=== PATIENT | male | born 1975 | race Caucasian/White ===

== ENCOUNTER 2022-09-17 16:12 | Observation (INO) | payer OTHER, SELFPAY ==
[2022-09-17] VITALS (24 sets, daily range): BP systolic 126–155; BP diastolic 69–106; PULSE 64–96; RESP 10–25; TEMP 36.6; O2SAT 94–99
--- NOTE | ~2022-09-17 | CT_ITS ---
EXAMINATION: CTA brain carotid DATE: 09/18/2022 08:45 INDICATION: Transient ischemic attack. TECHNIQUE: Computed tomographic angiography (CTA) of the head was performed without and with 100 mL O mnipaque-350 intravenous contrast. CTA of the neck was performed with intravenous contrast. Automated exposure control and iterative reconstruction technique were employed. The dose-length product was 1 787.66 mGy-cm. Maximum intensity projection and volume rendered 3D-reconstructions were created by paige hawk technologist on a separate workstation. COMPARISON: Head CT 09/17/2022, brain MRI 09/18/2022 FINDINGS: HEAD CTA: There is no intracranial hemorrhage, acute infarction, or abnormal intracranial mass lesion . The ventricles are normal in size. There is mild mucosal thickening in the paranasal sinuses. The o rbits are normal. There is a small left mastoid effusion. The left vertebral artery is dominant. Ther e is no significant stenosis of basilar artery or the posterior cerebral arteries. There is no signif icant stenosis of the intracranial internal carotid arteries or anterior or middle cerebral arteries. Anterior communicating artery is normal. The posterior communicating arteries are normal. There is a 2 mm infundibulum at left posterior communicating artery origin. There is no aneurysm. NECK CTA: There are no pathologically enlarged lymph nodes. There is mild plaque in proximal right in ternal carotid artery. There is 0% stenosis of the proximal right internal carotid artery relative to normal distal artery lumen diameter (NASCET criteria). There is 0% stenosis of the proximal left int ernal carotid artery relative to normal distal artery lumen diameter. There is mild cervical spondylo sis. IMPRESSION: 1. Normal brain. No aneurysm or significant intracranial arterial stenosis. 2. 0% stenosis of the proximal internal carotid arteries relative to normal distal artery lumen diame ters (NASCET criteria). Reviewed, dictated and finalized at location A. ANCILLARY IMPRESSION: 1. Normal brain. No aneurysm or significant intracranial arterial stenosis. 2. 0% stenosis of the proximal internal carotid arteries relative to normal dis sheila artery lumen diameters (NASCET criteria).
--- NOTE | ~2022-09-17 | MR_ITS ---
MRI of the brain Clinical History: TIA Technique: Axial and sagittal T1-weighted images were acquired. These were followed by axial T2-weigh edwige, diffusion weighted, gradient, and FLAIR images.. Following intravenous administration of 17 cc M ultiHance gadolinium, T1-weighted fat-sat imaging was performed in the axial and sagittal planes. Findings: No abnormal signal seen in the brain parenchyma. No acute infarct, intracranial hemorrhage, or mass lesion. Ventricles and subarachnoid spaces are unremarkable. Orbits are unremarkable. Paranasal sinuses and r ight mastoid air cells are clear. Minimal fluid present in left mastoid air cells. Major intracranial flow voids are intact. Sagittal midline structures are intact. No abnormal postcontrast enhancement identified. IMPRESSION: Minimal fluid in left mastoid air cells, otherwise unremarkable exam. Reviewed, dictated and finalized at location M. STARTER
--- NOTE | ~2022-09-17 | CT_ITS ---
EXAMINATION: CT brain wo con DATE: 09/17/2022 17:07 INDICATION: Vision loss. TECHNIQUE: Computed tomography (CT) of the head was performed without intravenous contrast. The mA wa s adjusted according to patient size. Iterative reconstruction technique was employed. The dose-lengt h product was 605.33 mGy-cm. COMPARISON: Brain MRI 03/04/2013 FINDINGS: There is no intracranial hemorrhage, acute infarction, or abnormal intracranial mass lesion . The ventricles are normal in size. There is mild mucosal thickening in the ethmoid sinuses. There i s a small left mastoid effusion. The orbits are normal. IMPRESSION: 1. Normal brain. Reviewed, dictated and finalized at location A. GER LOAN IMPRESSION: 1. Normal brain.
[2022-09-17 18:26] LABS: Basophils Percent Auto 0.3 % (0.2-1.2); Eosinophils Absolute Auto 0.1 K/mm3 (0-0.3); Eosinophils Percent Auto 1.2 % (0-4.4); Hematocrit 38.9 % (42.0-52.0); Hemoglobin 13.3 g/dL (14.0-18.0); Immature Granulocyte Absolute 0.04 K/mm3 (0.00-0.031); Immature Granulocyte Percent A 0.7 % (0-0.5); Lymphocytes Percent Auto 30.1 % (18.3-44.2); Mean Corpuscular HGB Conc 34.2 g/dl (32-36); Mean Corpuscular Hemoglobin 30.2 pg (26-34); Mean Corpuscular Volume 88.4 fl (80-100); Monocytes Absolute Auto 0.5 K/mm3 (0.1-0.6); Monocytes Percent Auto 7.9 % (2.6-8.5); Neutrophils Absolute Auto 3.6 K/mm3 (1.3-6.7); Neutrophils Percent Auto 59.8 % (45.5-73.1); Platelet Count Result 228 k/mm3 (150-375); Red Cell Distribution Width 12.3 % (11.5-14.5)
[2022-09-17 18:27] LABS: Alanine Aminotransferase 49 U/L (6-50); Albumin Level 4.6 g/dL (3.5-5.1); Alkaline Phosphatase 77 U/L (38-126); Anion Gap 6 mmol/L (8-16); Aspartate Amino Transferase 42 U/L (17-59); Bilirubin,Total 0.3 mg/dL (0.2-1.3); Blood Urea Nitrogen 17 mg/dL (9-20); Calcium 8.6 mg/dL (8.4-10.2); Carbon Dioxide 26 mmol/L (22-30); Chloride 103 mmol/L (98-107); Estimated CRCL calculation 97 ml/min; Estimated Glomerular Filt Rate > 60; Glucose 92 mg/dL (65-110); Potassium 4.1 mmol/L (3.4-5.0); Sodium 135 mmol/L (137-145)
--- NOTE | 2022-09-17 21:29 | ED.GENADULT ---
HPI - General Adult General Chief complaint: Eye Problems Stated complaint: vision loss left eye Time Seen by Provider: 09/17/22 21:03 History of Present Illness HPI narrative: 47-year-old male presented to the emergency department for evaluation of left lower visual field changes. Patient states that at approximately3:15 patient noticed a dark visual field loss of his left lower vision. Patient states this lasted approximately 1 to 2 minutes and then the patient had 45 minutes of subsequent hospital aura. Patient states that after this resolved he had no further visual changes. Patient then reports that approximately 8 PM he did develop a mild headache. Patient had approximately 30 seconds of speech deficit about 2 weeks ago when he was talking to his he states he had about 30 seconds of word finding difficulty. Patient denies any word finding difficulty today and denies any associated numbness or weakness today. At time of evaluation patient states he is back to his baseline Patient reports he does have a prior history of anxiety, was a previous smoker, does have high cholesterol but denies any prior history of hypertension. Patient did have a previous stress test years ago that was negative. Patient reports he has had intermittent issues of an undiagnosed tachycardia where his heart rate does go into the 150s. Patient states he has been unable to catch this on his apple watch and has not had follow-up with this with his primary care physician. Related Data Home Medications Medication Instructions Recorded Confirmed vilazodone 20 mg tablet (Viibryd) 20 mg PO DAILY 09/09/19 03/14/22 Allergies Allergy/AdvReac Type Severity Reaction Status Date / Time No Known Drug Allergies Allergy Unknown Unknown Verified 03/14/22 10:20 Review of Systems Review of Systems: CONSTITUTIONAL: Denies fever, chills, or sweats. EYES: Denies visual changes, redness, or discharge. ENT: Denies rhinorrhea, congestion, sore throat, or otalgia. CARDIOVASCULAR: Denies chest pain, palpitations, or edema. RESPIRATORY: Denies cough or dyspnea. GASTROINTESTINAL: Denies abdominal pain, nausea, vomiting, or diarrhea. GENITOURINARY: Denies dysuria or hematuria. SKIN: Denies rash or itching. MUSCULOSKELETAL: Denies back pain, joint pain, or myalgia. NEUROLOGIC: See [facility] Past Medical History Medical History Acne BMI 27.0-27.9,adult Tobacco abuse Urinary hesitancy Family History Family History Mother Family history of mental disorder Hypertension Sibling Family history of mental disorder Hypertension Father Family history of malignant neoplasm Other Diabetes mellitus Family history of cardiovascular disease Social History Social History Smoking packs per day: 0.5 Smoking cigarettes per day: 10.0 Years smoked: 5 Smoking pack-years: 2.50 Smoking status: Current every day smoker Tobacco type: cigarettes Alcohol intake: current Exam Narrative: APPEARANCE: Well appearing, no pain, no distress, well-nourished. HEAD: normocephalic, atraumatic. EYES: PERRLA/EOMI, conjunctivae clear. Normal visual castro. Normal fundus exam NOSE: Normal no drainage EARS:TMS clear with good light reflex. THROAT: Pharynx clear, no exudate. NECK: Supple. No adenopathy, no masses. RESPIRATORY: Airway patent, respirations nonlabored. Clear to auscultation bilaterally, no rales, rhonchi, wheezing. CARDIOVASCULAR: Regular rate and rhythm without murmurs rubs or gallops. ABDOMINAL: Soft, nontender, nondistended, normal bowel sounds MUSCULOSKELETAL: Moves all extremities. Strength/ROM intact, No edema, No calf tenderness. NEURO: Alert. Cranial nerves II through XII intact. Normal comprehensive neuro exam. Normal forward backward tandem gait. Negative Romberg. Normal str
--- NOTE | 2022-09-17 21:49 | PM.IMHP ---
H&P: HPI History of Present Illness Date/Time: 09/17/22 21:49 Chief Complaint: Vision change. Narrative: This is a 47-year-old male with past medical history generalized anxiety disorder, panic attacks. Patient presents to the emergency room after having episode of vision changes with left inferior outer quadrant vision loss that lasted briefly then patient was seeing rainbow colors in waves, no loss of consciousness, no nausea, no vomiting this episode was resolved by the time that he got to the emergency room in the parking lot patient states that he had a similar episode a few days ago but this time he had speech difficulty. Patient denies any fevers, rigors, chills, sensorimotor deficit, no tingling, no known in sensation, no paresthesias, no focal weakness, no syncope or near syncope. Preliminary workup has been essentially nonrevealing. Patient has been placed in observation for further evaluation management and treatment. Review of Systems Review of Systems: Vision loss left outer inferior quadrant, vision changes. Constitutional: Constitutional: Denies body ache(s), Denies chills, Denies fatigue, Denies fever(s), Denies malaise, Denies night sweats, Denies poor appetite and Denies weakness Eyes: Eyes: Denies blurry vision, Reports change in vision, Denies diplopia, Reports loss of vision (Left outer inferior quadrant) and Reports other visual disturbances (Seeing rainbow colors by waves in his vision) ENT: Denies dysphagia, Denies vertigo, Denies dizziness, Denies facial pain and Denies odynophagia Cardiovascular: Cardiovascular: Denies chest pain, Denies leg edema, Denies lightheadedness and Denies palpitations Respiratory: Respiratory: Denies chest congestion, Denies cough, Denies pain on inspiration, Denies dyspnea, Denies dyspnea on exertion and Denies wheezing Gastrointestinal: Gastrointestinal: Denies abdominal pain, Denies dyspepsia, Denies heartburn, Denies diarrhea, Denies nausea and Denies vomiting Genitourinary: Genitourinary: Denies dysuria Musculoskeletal: Musculoskeletal: Denies abnormal gait, Denies back pain, Denies arthralgias, Denies joint swelling and Denies muscle weakness Integumentary/Breasts: Skin/Breast: Denies rash Neurologic: Denies Abnormal speech present, Denies abnormal gait, Denies vertigo, Denies dizziness, Denies syncope, Denies focal weakness, Reports loss of vision (Left outer lower quadrant), Denies seizure-like activity, Denies Sensory deficit (Neuro), Denies paresthesias and Denies weakness Psychiatric: Psychiatric: Reports no additional psychiatric complaints and Reports as per HPI Endocrine: Endocrine: Denies cold intolerance, Denies flushing, Denies heat intolerance, Denies polyphagia, Denies polydipsia and Denies palpitations Hematologic/Lymphatic: Hematologic/Lymphatic: Reports no additional hematologic/lymphatic complaints and Reports as per HPI Allergic/Immunologic: Allergic/Immunologic: Reports no additional allergic/immunologic complaints and Reports as per HPI PMFSH Past Medical History Medical History Acne BMI 27.0-27.9,adult Tobacco abuse Urinary hesitancy Family History Family History Mother Family history of mental disorder Hypertension Sibling Family history of mental disorder Hypertension Father Family history of malignant neoplasm Other Diabetes mellitus Family history of cardiovascular disease Social History Social History Smoking packs per day: 0.5 Smoking cigarettes per day: 10.0 Years smoked: 5 Smoking pack-years: 2.50 Smoking status: Former smoker Tobacco type: cigarettes Alcohol intake: never Substance use: current Substance use type: marijuana Lack of Transportation: No Lack of Food: Never True Current Housing: I Have Housing Concerned About Fut
[2022-09-17 21:58] LABS: Prothrombin Time 12.7 Seconds (11.1-14.7)
[2022-09-17 21:59] LABS: Partial Thromboplastin Time 25.3 SECONDS (22.3-36.8)
[2022-09-17 22:33] LABS: Influenza A QL RT-PCR Negative (Negative); Influenza B QL RT-PCR Negative (Negative); RSV RNA, RT-PCR Negative (Negative); SARS-CoV-2 RNA PCR Negative
[2022-09-18] VITALS (13 sets, daily range): BP systolic 121–136; BP diastolic 74–90; PULSE 51–91; RESP 12–23; TEMP 36–36.1; O2SAT 93–98; BMI 28.9
--- NOTE | 2022-09-18 | ECHO_ITS ---
Patient Info Name: Davian Paul Age: 47 years : 1975 Gender: Male Ht: 68 in Wt: 180 lbs BSA: 2.00 m2 HR: 59 bpm BP: 136 / 90 mmHg Heart Rhythm: Sinus Rhythm Technical Quality: Fair Exam Date: 09/18/2022 8:51 AM Exam Location: [facility] Patient Status: Outpatient Admit Date: 09/17/2022 Staff Ordering Physician: Fam Combs MD Kennel Technician: Corina Cramer RDCS Attending Provider: Denae Patrick PA-C Referring Physician: Garret CORRAL; Exam Type: CA echo doppler color flow Study Info Indications - tia Complete two-dimensional, color flow and Doppler transthoracic echocardiogram is performed. Summary 1. Complete two-dimensional, color flow and Doppler transthoracic echocardiogram is performed. 2. Left ventricular chamber dimension is normal. 3. Left ventricular systolic function is normal, estimated at 60-65%. 4. The left ventricular diastolic function is normal. 5. E/e' 6 is not elevated. 6. There is trace tricuspid valve regurgitation. 7. No pulmonary hypertension, estimated pulmonary arterial systolic pressure is 25 mmHg. Left Ventricle E/e' 6 is not elevated. Left ventricular chamber dimension is normal. Left ventricular systolic function is normal, estimated at 60-65%. The left ventricular diastolic function is normal. Right Ventricle Right ventricular systolic function is normal and with normal TAPSE 2.4 cm. Right ventricular chamber dimension is normal. Left Atria Left atrial chamber dimension is normal. Right Atria Right atrial chamber dimension is normal. Aortic Valve The aortic valve is trileaflet. There is no aortic valve stenosis. There is no aortic valve regurgitation. Pulmonic Valve There is no pulmonic regurgitation. Mitral Valve There is no mitral valve stenosis. There is no mitral valve regurgitation. Tricuspid Valve There is trace tricuspid valve regurgitation. No pulmonary hypertension, estimated pulmonary arterial systolic pressure is 25 mmHg. Pericardium/Pleural There is no pericardial effusion. Inferior Vena Cava Normal inferior vena cava with >50% collapse upon inspiration consistent with normal right atrial pressure, 5 mmHg. Aorta The aortic root size at the sinus of Valsalva is normal. Left Ventricular Outflow Tract Name Value Normal LVOT 2D LVOT Diameter 2.0 cm LVOT Doppler LVOT Peak Gradient 4 mmHg LVOT Mean Gradient 2 mmHg LVOT VTI 19 cm LVOT VTI/AV VTI Ratio 0.8 LVOT Stroke Volume 61 ml LVOT CO 3.4 l/min LVOT CI 1.7 l/min/m2 Pulmonic Valve Name Value Normal RVOT Doppler RVOT Peak Gradient 2 mmHg
--- NOTE | 2022-09-18 02:23 | ADMGEN ---
This patient, Davian Paul, was admitted to [facility] Surg Room 315-01. Patient/family oriented to hospital policies and general routines including ID bracelet, bed and alarms, visiting hours, pain management, procedures, bathroom and other care routines, personal items, smoking policy, room service/diet, and visiting hours. Information on how to activate the Rapid Response Team has been discussed. Patient/Family are encouraged to report perceived risks to care and to ask questions if they do not understand what they are told or what they should do.
--- NOTE | 2022-09-18 09:36 | WPDNEURCNPN ---
Assessment and Plan Assessment and plan (1) TIA (transient ischemic attack): Code(s): G45.9 - Transient cerebral ischemic attack, unspecified Status: Acute (2) Hyperlipidemia: Code(s): E78.5 - Hyperlipidemia, unspecified Status: Acute (3) Tobacco abuse: Code(s): Z72.0 - Tobacco use Status: Acute Plan Davian Paul is a 47 year old male with a history of anxiety presenting for evaluation of vision change. On 09/17/22 patient developed transient episode of left lower visual field change, which lasted about 1-2 minutes and self-resolved. MRI negative for acute stroke. Given the episode of left facial droop and now visual changes, concern for possible TIA. Migraine with aura seems less likely given no associated headaches. Also considering ophthalmological causes of visual symptoms. - Recommend outpatient ophthalmology evaluation - Start Aspirin 81mg daily - Check lipid panel, may need statin Consult date: 09/18/22 Reason for consult: Visual change HPI: Davian Paul is a 47 year old male with a history of anxiety presenting for evaluation of vision change. On 09/17/22 patient developed transient episode of left lower visual field change, which lasted about 1-2 minutes and self-resolved. He also had prism-like floaters in both sides of his vision for about 45 min afterwards. He had no other focal symptoms during this episode. Patient reports that two weeks ago he had an episode of left facial droop while talking to his , that lasted about 30 seconds. He denied any word finding issues or problems with comprehension at the time. He was a daily smoker, but stopped for new years resolution. He does not take any medications other than Vybriid. His blood pressure has been within normal range during admission. He had an MRI brain and CTA brain and carotid which were unremarkable. Patient denies any associated headaches with these episodes. He feels that he is currently at baseline. He denies any family history of stroke at early age. Review of Systems Constitutional: Constitutional: Reports no additional constitutional complaints Eyes: Eyes: Reports as per HPI ENT: Reports system reviewed and no additional complaints, except as documented Cardiovascular: Cardiovascular: Reports no additional cardiovascular complaints Respiratory: Respiratory: Reports no additional respiratory complaints Gastrointestinal: Gastrointestinal: Reports no additional gastrointestinal complaints Genitourinary: Genitourinary: Reports no additional male genitourinary complaints Musculoskeletal: Musculoskeletal: Reports no additional musculoskeletal complaints Integumentary/Breasts: Skin/Breast: Reports system reviewed and no additional complaints, except as docu Neurologic: Reports as per HPI Psychiatric: Psychiatric: Reports anxiety PMFSH Past Medical History Medical History Acne BMI 27.0-27.9,adult Tobacco abuse Urinary hesitancy Family History Family History Mother Family history of mental disorder Hypertension Sibling Family history of mental disorder Hypertension Father Family history of malignant neoplasm Other Diabetes mellitus Family history of cardiovascular disease Social History Social History Smoking packs per day: 0.5 Smoking cigarettes per day: 10.0 Years smoked: 5 Smoking pack-years: 2.50 Smoking status: Former smoker Tobacco type: cigarettes Alcohol intake: never Substance use: current Substance use type: marijuana Lack of Transportation: No Lack of Food: Never True Current Housing: I Have Housing Concerned About Future Housing: No Difficulty Paying Gas/Electric Bills: No Difficulty Paying for Meds: No Currently Unemployed: No Education: Bachelor's Degree Difficulty w/ Childcare or
--- NOTE | 2022-09-18 13:08 | PM.DS ---
DS: Admitting Diagnosis Discharge Date 09/18/22 Admitting Diagnosis TIA DS: Discharge Diagnosis Discharge Diagnosis (1) TIA (transient ischemic attack): Code(s): G45.9 - Transient cerebral ischemic attack, unspecified Status: Acute (2) Tobacco abuse: Code(s): Z72.0 - Tobacco use Status: Acute (3) Anxiety disorder, unspecified: Qualifiers: Anxiety disorder type: generalized anxiety disorder Qualified Code(s): F41.1 - Generalized anxiety disorder Code(s): F41.9 - Anxiety disorder, unspecified Status: Acute (4) Mixed hyperlipidemia: Code(s): E78.2 - Mixed hyperlipidemia Status: Acute DS: Summary Hospital Course Reason for hospitalization: 47 yo male w/ hx of anxiety and panic attacks admitted for acute vision changes and suspected TIA. Hospital Course: On 09/17/22 patient developed transient episode of left lower visual field change, which lasted about 1-2 minutes and self-resolved. Neurology was consulted. MRI negative for acute stroke. Echo also normal. Given the episode of left facial droop and now visual changes, concern for possible TIA. Per neurology migraine with aura seems less likely given no associated headaches. We are also considering ophthalmological causes of visual symptoms. We have started asprin 81 mg daily. Cholesterol was elevated with triglycerides at 329, total cholesterol 281, LDL 150, HDL 46. We also started him on Atorvastatin 40 mg daily. Pt to follow up with ophthalmology and pcp upon discharge. Status at Discharge Functional status at discharge: independent ambulation Overall status at discharge: patient is back to baseline Time Spent with Patient Time attestation: Total time spent providing and/or coordinating discharge services: 32 Time spent: Greater than 30 minutes Exam Narrative: Const:?? General: comfortab le and no acute di stress HENMT:?? Mouth: moist mucou s membranes Eyes:?? Pupils: Equal, rou nd and reactive pu pils present? EOM: EOMs intact bilat erally? Other: Nor mal visual castro Resp:?? Effort & Inspectio n: normal respirat ory effort? Auscul tation: clear to a uscultation bilate rally Cardio:?? Rate: regular rate ? Rhythm: regular rhythm GI:?? GI Palp: Soft, no n tender, no rebou nd or guarding Skin:?? General skin exam: normal color, war m, dry Neuro:?? Other: AOx3, Pupil s equal and reacti ve bilaterally, EO ND, face symmetric , Strength 5/5 thr oughout. Sensation intact throughout . Extrem:?? General: moves all 4 extremities, no edema Psych:?? Mental Status: men sheila status grossly normal? Affect: n ormal affect DS: Data Data Completed and Pending Labs on day of discharge: Labs from last 24 hours 09/18/22 09/17/22 09/17/22 12:59 21:49 21:42 WBC RBC Hgb Hct MCV MCH MCHC RDW Plt Count MPV Immature Gran % (Auto) Neut % (Auto) Lymph % (Auto) Cowley % (Auto) Eos % (Auto) Baso % (Auto) Lymph # (Auto) Cowley # (Auto) Eos # (Auto) Baso # (Auto) Abs Immat Gran (auto) Absolute Neuts (auto) Absolute Nucleated RBC Nucleated RBC % PT 12.7 INR 1.0 APTT 25.3 Sodium Potassium Chlori
[2022-09-18 13:22] LABS: Cholesterol 281 mg/dL (0-200); HDL Direct 46 mg/dL; Triglycerides 329 mg/dL (<150)
[2022-09-18 13:33] LABS: LDL Cholesterol Direct 150 mg/dL
== END 2022-09-18 16:15 | disposition home or self-care (01) ==
LOC: ANHED 21:03 → ANH3MEDSUR 09-18 00:54
PROVIDERS: Admitting Provider Internal Medicine; Emergency Provider Emergency Medicine; PCP Family Medicine; Visit Provider Physician Assistant
DX: G45.9 Transient cerebral ischemic attack, unspecified (principal); F41.1 Generalized anxiety disorder; E78.2 Mixed hyperlipidemia; H53.8 Other visual disturbances; F41.0 Panic disorder [episodic paroxysmal anxiety]; R51.9 Headache, unspecified; Z20.822 Contact with and (suspected) exposure to COVID-19; F12.90 Cannabis use, unspecified, uncomplicated; Z87.891 Personal history of nicotine dependence; Z79.899 Other long term (current) drug therapy; Z82.49 Family history of ischemic heart disease and other diseases of the circulatory system
CPT/HCPCS: 36415; 70450; 70496; 70498; 70553; 80053; 80061; 85025; 85610; 85730; 87637; 93306; 99285; A9577; G0378; Q9967

== ENCOUNTER 2022-12-09 07:59 | Day surgery (SDC) | payer OTHER, SELFPAY ==
[2022-10-17 10:54] VITALS: BMI 28.4
[2022-11-29 10:15] VITALS: BMI 27.9
--- NOTE | 2022-12-09 08:56 | P.PNAN_ITS ---
Anes - Initial Pre Proc Eval Procedure: Operation Date: 12/09/22 10:00 Proposed Procedures p Screening Colonoscopy - Bimal Mccabe MD Date/Time: 12/09/22 08:56 Surgeon: Bimal Mccabe MD Pre Op Diagnosis: Neoplasm Screening Patient Data Age: 47 Gender: M Height: 1.7 m Weight: 81 kg Allergies Allergy/AdvReac Type Severity Reaction Status Date / Time No Known Drug Allergies Allergy Unknown Unknown Verified 11/29/22 10:15 Home Medications Medication Instructions Recorded Confirmed Type vilazodone 20 mg tablet (Viibryd) 20 mg PO HS 09/09/19 11/29/22 History atorvastatin 40 mg tablet 40 mg PO DAILY #30 tabs 09/18/22 11/29/22 Rx Patient hx anesthesia problems: none Family hx anesthesia problems: none Results Review: All pre-operative results and documents have been reviewed as part of the pre- operative evaluation. [facility] Past Medical History Medical History Acne Adult BMI 28.0-28.9 kg/sq m BMI 27.0-27.9,adult Tobacco abuse Urinary hesitancy Family History Family History Mother Family history of mental disorder Hypertension Sibling Family history of mental disorder Hypertension Father Family history of malignant neoplasm Other Diabetes mellitus Family history of cardiovascular disease Social History Social History Smoking packs per day: 0.5 Smoking cigarettes per day: 10.0 Years smoked: 5 Smoking pack-years: 2.50 Smoking status: Unknown if ever smoked Tobacco type: cigarettes Alcohol intake: unknown Substance use: current Substance use type: marijuana Lack of Transportation: No Lack of Food: Never True Current Housing: I Have Housing Concerned About Future Housing: No Difficulty Paying Gas/Electric Bills: No Difficulty Paying for Meds: No Currently Unemployed: No Education: Bachelor's Degree Difficulty w/ Childcare or Family Care: No Living arrangements: with family Spiritual care concerns: No Anes - Eval Final PreProcedure Day of Procedure 12/09/22 08:56 Patient weight: overweight Heart: regular rate and rhythm Lungs: clear to auscultation Airway: Mallampati scale class II Neurological: alert and oriented Last oral intake: >/= 8 hours ASA classification: III Emergent: no Anesthetic plan: proceed Anesthesia type and monitoring: general GIVS and standard monitoring Results Review: All pre-operative results and documents have been reviewed as part of the pre- operative evaluation. Informed Consent: The patient's anesthetic plan and its attendant risks and benefits were discussed with the patient/family/POA. Questions were solicited and answers provided to the satisfaction of the patient/family/POA.
[2022-12-09] MEDS: LACTATED RINGERS 1,000 ML 150 ML IV CONT (09:15)
--- NOTE | 2022-12-09 09:26 | PM.HPGS ---
History of Present Illness History of Present Illness Consent: Risks, benefits, and alternatives have been discussed and questions answered. Patient agrees to proceed with procedure. Chief complaint: Neoplasm Screening Narrative: Davian Paul is a 47 year old male here for first screening colonoscopy Review of Systems Constitutional: Constitutional: Denies headache(s) and Denies weakness Eyes: Eyes: Denies blurry vision ENT: Reports Normal hearing present, Denies headache(s) and Denies neck pain Cardiovascular: Cardiovascular: Denies chest pain and Denies dyspnea Respiratory: Respiratory: Denies dyspnea Gastrointestinal: Gastrointestinal: Reports no additional gastrointestinal complaints Genitourinary: Genitourinary: Denies dysuria Musculoskeletal: Musculoskeletal: Denies neck pain Integumentary/Breasts: Skin/Breast: Denies dry skin Neurologic: Reports Normal hearing present, Denies headache(s) and Denies weakness Psychiatric: Psychiatric: Denies anxiety Endocrine: Endocrine: Denies change in body appearance Hematologic/Lymphatic: Hematologic/Lymphatic: Denies easy bleeding Allergic/Immunologic: Allergic/Immunologic: Denies urticaria PMFSH Past Medical History Medical History Acne Adult BMI 28.0-28.9 kg/sq m BMI 27.0-27.9,adult Tobacco abuse Urinary hesitancy Family History Family History Mother Family history of mental disorder Hypertension Sibling Family history of mental disorder Hypertension Father Family history of malignant neoplasm Other Diabetes mellitus Family history of cardiovascular disease Social History Social History Smoking packs per day: 0.5 Smoking cigarettes per day: 10.0 Years smoked: 5 Smoking pack-years: 2.50 Smoking status: Unknown if ever smoked Tobacco type: cigarettes Alcohol intake: unknown Substance use: current Substance use type: marijuana Lack of Transportation: No Lack of Food: Never True Current Housing: I Have Housing Concerned About Future Housing: No Difficulty Paying Gas/Electric Bills: No Difficulty Paying for Meds: No Currently Unemployed: No Education: Bachelor's Degree Difficulty w/ Childcare or Family Care: No Living arrangements: with family Spiritual care concerns: No Meds Home Medications and Allergies Home Medications Medication Instructions Recorded Confirmed Type vilazodone 20 mg tablet (Viibryd) 20 mg PO HS 09/09/19 12/09/22 History atorvastatin 40 mg tablet 40 mg PO DAILY #30 tabs 09/18/22 12/09/22 Rx Allergies Allergy/AdvReac Type Severity Reaction Status Date / Time No Known Drug Allergies Allergy Unknown Unknown Verified 12/09/22 09:05 Exam Const: General: comfortable and no acute distress HENMT: Face/Nose/Sinus: Normal nares present Eyes: General: appearance normal, both eyes and all related structures Neck: Neck: no JVD Resp: Auscultation: clear to auscultation bilaterally Cardio: Rate: regular rate Rhythm: regular rhythm GI: Inspection: non-distended GI Palp: Yes Soft to palpation Skin: General skin exam: normal color Neuro: General: gait normal Speech: normal speech Extrem: General: normal to inspection Psych: Mental Status: mental status grossly normal Assessment and Plan Assessment and plan (1) Screening for colon cancer: Code(s): Z12.11 - Encounter for screening for malignant neoplasm of colon Status: Acute Assessment and Plan: colonoscopy
[2022-12-09 09:48] VITALS: BP 106/71; PULSE 59; RESP 14; O2SAT 99
[2022-12-09 09:58] VITALS: BP 103/73; PULSE 73; RESP 16; O2SAT 99
--- NOTE | 2022-12-09 10:04 | WPDANESPN ---
Anes - Prog Note Post-Op Date/Time: 12/09/22 10:04 Cardiovascular status: normal Respiratory status: normal Airway patency: baseline Mental status: baseline Post-Op hydration status: normal Vital Signs: Last Vital Signs Pulse 59 L 12/09/22 09:48 Resp 14 12/09/22 09:48 BP 106/71 12/09/22 09:48 Pulse Ox 99 12/09/22 09:48 O2 Del Method Room Air 12/09/22 09:48 Pain Score (VAS): 0 I/O: Intake & Output 12/08/22 12/09/22 12/09/22 23:59 07:59 15:59 Intake Total 0 Balance 0 Patient Feedback: Patient satisfied with anesthetic care.
[2022-12-09 10:08] VITALS: BP 118/87; PULSE 55; RESP 20; O2SAT 99
== END 2022-12-09 10:24 | disposition home or self-care (01) ==
PROVIDERS: PCP Family Medicine; Visit Provider Internal Medicine Gastroenterology
PROC: 0DJD8ZZ Inspection of Lower Intestinal Tract, Via Natural or Artificial Opening Endoscopic (ICD-10-PCS; CPT 45378; principal; 2022-12-09 10:00)
DX: Z12.11 Encounter for screening for malignant neoplasm of colon (principal)
CPT/HCPCS: 45378

== ENCOUNTER 2023-12-19 08:12 | Outpatient (CLI) | payer OTHER, SELFPAY ==
--- NOTE | ~2023-12-19 | US_ITS ---
US right upper quadrant DATE: 12/19/2023 08:43 INDICATION: Elevated liver enzymes TECHNIQUE: Real-time imaging of liver, pancreas, gallbladder COMPARISON: None FINDINGS: No hepatic or pancreatic space-occupying mass lesion is evident. Normal hepatopedal portal venous flow direction. No gallstones or gallbladder wall thickening. Negative sonographic Nguyễn's si gn. The common bile duct measures 5.3 mm, within normal range. IMPRESSION: No significant abnormality Reviewed, dictated and finalized at [facility]. Reviewed, dictated and finalized at [facility]. IMPRESSION: No significant abnormality
== END 2023-12-19 08:13 ==
LOC: GOSHIMG 08:13
PROVIDERS: PCP Family Medicine; Visit Provider Physician Assistant
DX: R79.89 Other specified abnormal findings of blood chemistry (principal)
CPT/HCPCS: 76705